=== PATIENT | female | born 1985 | race Caucasian/White ===

== ENCOUNTER 2017-07-07 01:02 | Inpatient (IN) | payer OTHER, SELFPAY ==
[2017-07-07] MEDS: BETAMETHASONE SOLUSPAN 6MG/ML INJ 5ML (J0702) IM ×2 (03:02→15:15)
[2017-07-07] MEDS: PENICILLIN G POTASSIUM IV 5 MU in D5W MINI-BAG PLUS 100 ML IV (03:02)
[2017-07-07] MEDS: LACTATED RINGER'S 1000 ML IV (03:03)
[2017-07-07 03:11] LABS: HEMATOCRIT 36.3 % (36.0-47.0); HEMOGLOBIN 12.3 g/dl (12.0-15.5); MEAN CORPUSCULAR HEMOGLOBIN 30.9 pg (27.0-33.0); MEAN CORPUSCULAR HGB CONC 33.9 g/dl (32.0-36.5); MEAN CORPUSCULAR VOLUME 91.2 fl (80.0-96.0); PLATELET COUNT, AUTOMATED 320 10^3/uL (150-450); RED BLOOD COUNT 3.98 10^6/uL (4.00-5.40); RED CELL DISTRIBUTION WIDTH 13.1 % (11.5-14.5)
[2017-07-07 03:22] LABS: AMPHETAMINES URINE REFLEX NEGATIVE (NEGATIVE); BARBITURATES URINE REFLEX NEGATIVE (NEGATIVE); BENZODIAZEPINES URINE REFLEX NEGATIVE (NEGATIVE); CANNABINOIDS URINE REFLEX NEGATIVE (NEGATIVE); COCAINE METABOLITE URINE REFLE NEGATIVE (NEGATIVE); METHADONE URINE REFLEX NEGATIVE (NEGATIVE); OPIATES URINE REFLEX NEGATIVE (NEGATIVE); PHENCYCLIDINE URINE REFLEX NEGATIVE (NEGATIVE)
[2017-07-07 03:45] LABS: APPEARANCE, URINE CLOUDY (CLEAR); BACTERIA, URINE AUTO 1+ (NEGATIVE); BILIRUBIN, URINE AUTO NEGATIVE (NEGATIVE); BLOOD, URINE BLOOD NEGATIVE (NEGATIVE); COLOR, URINE YELLOW (YELLOW); GLUCOSE, URINE (UA) AUTO NEGATIVE (NEGATIVE); KETONE, URINE AUTO NEGATIVE (NEGATIVE); LEUKOCYTE ESTERASE, URINE AUTO NEGATIVE (NEGATIVE); MUCUS, URINE SMALL (NEGATIVE); NITRITE, URINE AUTO NEGATIVE (NEGATIVE); PROTEIN, URINE AUTO NEGATIVE (NEGATIVE); RBC, URINE AUTO 5 /HPF (0-3); SQUAMOUS EPITHELIAL CELL UR AU 9 /HPF (0-6); URIC ACID CRYSTALS SMALL; UROBILINOGEN, URINE AUTO 0.2 mg/dL (0.0-2.0); WBC, URINE AUTO 3 /HPF (0-3)
[2017-07-07 05:03] LABS: HBSAG L&D NEGATIVE (NEGATIVE)
[2017-07-07] MEDS ORDERED: PENICILLIN G POTASSIUM IV 2.5 MU in APPROPRIATE DILUENT 1 EA IV (06:30)
[2017-07-07] MEDS: PENICILLIN G POTASSIUM IV 2.5 MU in APPROPRIATE DILUENT 1 EA IV ×5 (06:54→23:00)
[2017-07-07] MEDS ORDERED: **PENDING PCN ENTRY XX (09:00)
[2017-07-07] MEDS: AZITHROMYCIN 250 MG TAB PO (10:00)
[2017-07-08] MEDS: miSOPROStol 50 MCG 1/2 TAB (S0191) SL (00:13)
[2017-07-08] MEDS ORDERED: ONDANSETRON 4MG/2ML VIAL (J2405) As Ordered (01:09)
[2017-07-08] MEDS ORDERED: ONDANSETRON 4MG/2ML VIAL (J2405) IV (01:30)
[2017-07-08] MEDS: PENICILLIN G POTASSIUM IV 2.5 MU in APPROPRIATE DILUENT 1 EA IV ×2 (03:00→07:04)
[2017-07-08] MEDS: PROMETHAZINE INJ 25 MG/ML VIAL (J2550) IV (05:00)
[2017-07-08] MEDS: OXYTOCIN DRIP 30 UNITS in APPROPRIATE DILUENT 1 EA IV (05:00)
[2017-07-08] MEDS: BUTORPHANOL 2 MG/ML INJ (J0595) IV (05:01)
[2017-07-08 08:36] LABS: CORD GAS ABE V -3.9; CORD GAS O2 SAT V 80.1 %; CORD GAS PH V 7.327 UNITS; CORD GAS PO2 V 34.2 mmHg; CORD GAS SBC V 20.8 MEQ/L; CORD GAS TCO2 V 23.3 MEQ/L
[2017-07-08 08:41] LABS: CORD GAS ABE A -4.1; CORD GAS HCO3 A 23.7 MEQ/L; CORD GAS O2 SAT A 72.5 %; CORD GAS PCO2 A 53.8 mmHg; CORD GAS PH A 7.262 UNITS; CORD GAS PO2 A 31.9 mmHg; CORD GAS SBC A 20.5 MEQ/L; CORD GAS TCO2 A 25.4 MEQ/L
[2017-07-08] MEDS ORDERED: METHYLERGONOVINE MALEATE 0.2 MG TAB PO (09:00)
[2017-07-08] MEDS ORDERED: ACETAMINOPHEN 500 MG TAB PO (09:00)
[2017-07-08] MEDS ORDERED: MOM 30ML SUSPENSION UDC PO (09:00)
[2017-07-08] MEDS ORDERED: ANUSOL HC CREAM 30GM TOP (09:00)
[2017-07-08] MEDS: LIDOCAINE 1% MDV 20ML VIAL INFIL (11:00)
[2017-07-08] MEDS: PRENATAL VITAMINS CHEWABLE TABLET PO (11:35)
[2017-07-08] MEDS: IBUPROFEN 800 MG TAB PO (18:15)
[2017-07-08] MEDS: DOCUSATE SODIUM 100 MG CAP PO (18:17)
[2017-07-08] MEDS: DIBUCAINE 1% OINTMENT 30GM TOP (18:18)
[2017-07-09] MEDS: IBUPROFEN 800 MG TAB PO (05:15)
[2017-07-09] MEDS: PRENATAL VITAMINS CHEWABLE TABLET PO (08:32)
[2017-07-09] MEDS: MEASLES,MUMPS,RUBELLA VACCINE INJ (MMR-II) (90707) SC (10:00)
[2017-07-09] MEDS: RHOGAM 300 MCG (1500 IU) INJ (J2790) IM (10:00)
== END 2017-07-10 08:07 | disposition home or self-care (01) | DRG 560 ==
LOC: M LDO 01:02 → M OBS 07-08 12:47 → M LDI 02:38
PROVIDERS: Advanced Practice Midwife
PROC: 10E0XZZ Delivery of Products of Conception, External Approach (ICD-10-PCS; principal; 2017-07-08)
PROC: 0HQ9XZZ Repair Perineum Skin, External Approach (ICD-10-PCS; 2017-07-08)
DX: O42.013 Preterm premature rupture of membranes, onset of labor within 24 hours of rupture, third trimester (principal); O60.14X0 Preterm labor third trimester with preterm delivery third trimester, not applicable or unspecified; F17.200 Nicotine dependence, unspecified, uncomplicated; Z37.0 Single live birth; Z3A.33 33 weeks gestation of pregnancy; Z88.2 Allergy status to sulfonamides; O99.334 Smoking (tobacco) complicating childbirth; O70.0 First degree perineal laceration during delivery; O69.82X0 Labor and delivery complicated by other cord entanglement, without compression, not applicable or unspecified

== ENCOUNTER → 2018-07-04 | Outpatient (REF) | payer OTHER ==
[~2018-07-04] MED LIST: COLA100C5 PO; IBUP-1114 PO; MAPA500T2 PO; MOM30SS PO; PRENTAB55 PO; ZOLO25TA PO
== END ==
LOC: M SFHCLERA 13:30
PROVIDERS: ATTEND Physician Assistant
DX: J02.9 Acute pharyngitis, unspecified (principal)